=== PATIENT | male | born 1955 | race Caucasian/White ===

== ENCOUNTER 2025-01-21 18:30 | Emergency (ER) | payer OTHER ==
[2025-01-21] MEDS ORDERED: MORPHINE Sulfate 2 MG/ML SYR IV ONE (18:35)
[2025-01-21] MEDS ORDERED: SODIUM CHLORIDE 0.9% 1,000 ML IV ONE ×3 (18:35→19:33)
[2025-01-21 18:55] LABS: BASO # 0.1 10*3/uL (0.0-0.1); BASO % 0.7 % (0.0-1.0); EOS # 0.2 10*3/uL (0.0-0.4); EOS % 1.2 % (1.0-4.0); MEAN CELL VOLUME 98.7 fl (80.0-94.0); MEAN CORPUSCULAR HGB 31.4 pg (27.0-31.0); MEAN CORPUSCULAR HGB CONC 31.8 g/dl (33.0-37.0); MEAN PLATELET VOLUME 10.4 fl (9.6-12.3); MONO # 1.4 10*3/uL (0.1-1.0); MONO % 6.7 % (3.0-9.0); NEUT # 15.3 10*3/uL (2.3-7.9); NEUT % 75.8 % (47.0-73.0); PLATELET COUNT AUTOMATED 242 10*3/uL (130-400); RED BLOOD COUNT 4.56 10*6/uL (4.50-5.90); RED CELL DISTRI WIDTH 13.2 % (0-14.5); WHITE BLOOD COUNT 20.2 10*3/uL (4.8-10.8)
[2025-01-21 19:14] LABS: BUN 19 mg/dl (9-23); CHLORIDE 103 mmol/L (98-107)
[2025-01-21 19:20] VITALS: BP 106/67
[2025-01-21] MEDS ORDERED: Prochlorperazine Edisylate 10 MG/2 ML VIAL IV ONE (19:20)
[2025-01-21 19:23] VITALS: BP 104/82
[2025-01-21 19:30] VITALS: BP 102/79
[2025-01-21] MEDS ORDERED: fentaNYL CITRATE 100 MCG/2 ML VIAL ONE (19:32)
[2025-01-21] MEDS ORDERED: Midazolam Hydrochloride 5 MG/5 ML VIAL ONE (19:33)
[2025-01-21 19:50] VITALS: BP 118/78
[2025-01-21] MEDS ORDERED: HYDROmorphONE Hydrochloride 0.5 MG/0.5 ML SYRINGE ONE (19:58)
[2025-01-21 20:00] VITALS: BP 118/78
[2025-01-21] MEDS ORDERED: Ketamine Hydrochloride 500 MG/10 ML VIAL ONE (20:02)
[2025-01-21] MEDS ORDERED: CALCIUM CHLORIDE 1 GM/10 ML SYR IV ONE (20:13)
[2025-01-21] MEDS ORDERED: fentaNYL CITRATE 100 MCG/2 ML VIAL IV ONE (20:25)
[2025-01-21] MEDS ORDERED: HYDROmorphone Hydrochloride 1 MG/ML SYR IV ONE (20:25)
[2025-01-21] MEDS ORDERED: Midazolam Hydrochloride 5 MG/5 ML VIAL IV ONE (20:25)
== END 2025-01-21 20:24 | disposition short-term general hospital (02) ==
LOC: ED 18:30
PROVIDERS: Emergency Medicine
DX: I71.30 Abdominal aortic aneurysm, ruptured, unspecified (principal)